=== PATIENT | male | born 1955 | race Caucasian/White ===

== ENCOUNTER 2021-06-04 12:10 | Emergency (ER) | payer MEDICARE, SELFPAY ==
[2021-06-04 12:40] VITALS: BP 134/83; PULSE 73; RESP 18; TEMP 37.1; O2SAT 93; BMI 26.1
[2021-06-04 13:43] VITALS: BP 166/95; PULSE 70; O2SAT 94
--- NOTE | 2021-06-04 14:06 | W.ED.GENADLT ---
HPI - General Adult General: Chief complaint: General Medical Stated complaint: UNABLE TO EAT/SLEEP MUCH 5 DAYS, WEAK, DIFF BREATH Time Seen by Provider: 06/04/21 13:52 History of Present Illness: HPI narrative: Patient complains of cold-like symptoms. He had a fever 2 days ago. Had aches chills no headache has had nausea and loss of taste. Said he has vomited some able to drink fluids. He said his symptoms started about 8 to 9 days ago. MD complaint: covid Onset (ago): day(s) Associated symptoms: Reports dyspnea, nausea and vomiting; Deny chest pain, headache(s) or rash Review of Systems Narrative: Loss of taste Const: Reports: fever(s), chills and body aches Eyes: Denies: change in vision or blurry vision ENMT: Denies: throat pain or nasal congestion Card: Denies: chest pain or dyspnea on exertion Resp: Reports: dyspnea and non-productive cough; Denies: productive cough GI: Reports: nausea and vomiting; Denies: abdominal pain : Denies: difficulty urinating Musc: Denies: extremity pain Skin/Breast: Denies: rash Neuro: Denies: headache(s) Psych: Denies: anxiety or depression Cezar/Lymph: Denies: easy bruising PFSH ED PFSH: Medical History (Updated 06/04/21 @ 16:37 by LEONARDA Santacruz) Cervical disc disorder with myelopathy of mid-cervical region Cervical spondylosis Hypertension Surgical History (Updated 02/01/20 @ 15:09 by Parth Maguire MD) H/O right knee surgery Family History (Updated 02/01/20 @ 15:01 by Sarita Putnam LPN) Mother Diabetes Social History (Updated 02/01/20 @ 15:02 by Sarita Putnam LPN) Smoking and tobacco status: former smoker Alcohol intake: never Lives independently: Yes Marital status: Current occupational status: employed History of recent travel: No Physical Exam Const: COMMON NORMALS: no acute distress, average body habitus and patient oriented x3 HENMT: COMMON NORMALS: normocephalic HEAD & SCALP: normal to inspection and normocephalic FACE & SINUS: normal facial exam Eye: COMMON NORMALS: conjunctivae normal GENERAL EYE: appearance normal, both eyes and all related structures CONJUNCTIVA: Yes conjunctivae normal Neck/C-Spine: COMMON NORMALS: no JVD Chest: COMMONS NORMALS: normal inspection of the chest Resp: COMMON NORMALS: normal respiratory effort and clear to auscultation bilaterally AUSCULTATION: clear to auscultation bilaterally Cardio: COMMON NORMALS: no JVD, regular rate and regular rhythm RATE: regular rate RHYTHM: regular rhythm GI: COMMON NORMALS: Normal to inspection, nondistended, normoactive bowel sounds present Extremity: COMMON NORMALS: normal to inspection and full ROM Neuro: COMMON NORMALS: patient oriented x3 Course Vital Signs: Vital signs: Vital Signs Temperature 98.7 F 06/04/21 12:40 Pulse Rate 78 06/04/21 16:56 Respiratory Rate 16 06/04/21 16:56 Blood Pressure 122/70 06/04/21 16:56 Pulse Oximetry 97 06/04/21 16:56 MDM - General Adult MDM Narrative: Medical decision making narrative: Patient presented with Covid-like symptoms. Covid test was negative. Radiology and laboratory studies look good. UA showed bacteria but it appeared to be not a clean-catch sample based on other reporting elements. Patient appears to have a viral syndrome. Patient was instructed to follow back up here or with primary care if worsening symptoms. Encourage patient get retested if symptoms continue but since she is in day 8 it probably would not make much difference. Patient is recovering and feeling better. Did not appear dehydrated. Lab Data: Labs: Lab Results 06/04/21 06/04/21 06/04/21 Range/Units 14:33 15:24 15:24 WBC 6.7 (4.0-10.0) 10^3/ uL RBC 5.40 H (4.1-5.3) 10^6/u L Hgb 16.7 H (11.7-16.6) g/dL Hct 49.8 (42.0-52.0) % MCV 92.2 (80-94) fL MCH 30.9 (28.0-34.0) pg MCHC 33.5 (30.0-36.0) g/dL RDW 13.3 (12.1-15.1) % Plt Count 189 (130-400) 10^3/c mm MPV 10.1 (7.4-10.4) fL Neut % (Auto) 75.4 % Lymph % (Auto) 17.7 % [place] % (Auto) 6.0 % Eos % (Auto) 0.0 % Baso % (Auto) 0.3 % Neut # (Auto) 5.04 (1.8-7.7) 10^3/u L Lymph # (Auto) 1.2 (0.8-4.8) 10^3/u L [place] # (Auto) 0.4 (0.2-0.9) 10^3/u L Eos # (Auto) 0.0 (0.0-0.8) 10^3/u L Baso # (Auto) 0.0 (0.0-0.1) 10^3/u L Nucleated RBC % (a uto) 0 % Nucleated RBCs # 0.0 /100WBC Sodium 137 (136-145) mmol/L Potassium 4.1 (3.5-5.1) mmol/L Chloride 98 (98-107) mmol/L Carbon Dioxide 25 (22-29) mmol/L Anion Gap 18.1 (5-19) BUN 19 (8-23) mg/dL Creatinine 0.8 (0.7-1.2) mg/dL GFR Calculation 96.4 (90-130) mL/min Glucose 110 (65-115) mg/dL Calculated Osmolal ity 287 (285-295) mOsm/k g Lactate (0.5-2.2) mmol/L Calcium 8.9 (8.5-10.5) mg/dL Total Bilirubin 0.7 (0.15-1.2) mg/dL AST 42 H (0-40) U/L ALT 39 (0-41) U/L Alkaline Phosphata se 71 (40-130) IU/L Total Protein 7.2 (6.6-8.7) g/dL Albumin 3.8 (3.5-5.2) g/dL Globulin 3.4 (1.3-4.6) g/dL Lipase 15 (13-60) U/L Urine Color Yellow (Yellow) Urine Appearance Clear (CLEAR) Urine pH 5 (5-7) Ur Specific Gravit y 1.020 (1.005-1.030) Urine Protein 1+ H (Negative) Urine Glucose (UA) Norm (Normal) Urine Ketones 1+ H (Negative) Urine Blood 2+ H (Negative) Urine Nitrate Negative (Negative) Urine Bilirubin 1+ H (Negative) Urine Urobilinogen 4 H (Negative) mg/dL Ur Leukocyte Danielle ase Negative (Negative) Urine RBC 0-4 H (0-2) /hpf Urine WBC 0-4 H (0-5) /hpf Ur Squamous Epith Cells 0-4 H (0-5) /hpf Amorphous Sediment Not Reportable Urine Bacteria 1+ H (NONE) /hpf Urine Mucus 1+ /hpf SARS-CoV-2 Ag (Rap id) (Negative) 06/04/21 06/04/21 Range/Units 15:24 16:00 WBC (4.0-10.0) 10^3/ uL RBC (4.1-5.3) 10^6/u L Hgb (11.7-16.6) g/dL Hct (42.0-52.0) % MCV (80-94) fL MCH (28.0-34.0) pg MCHC (30.0-36.0) g/dL RDW (12.1-15.1) % Plt Count (130-400) 10^3/c mm MPV (7.4-10.4) fL Neut % (Auto) % Lymph % (Auto) % [place] % (Auto) % Eos % (Auto) % Baso % (Auto) % Neut # (Auto) (1.8-7.7) 10^3/u L Lymph # (Auto) (0.8-4.8) 10^3/u L [place] # (Auto) (0.2-0.9) 10^3/u L Eos # (Auto) (0.0-0.8) 10^3/u L Baso # (Auto) (0.0-0.1) 10^3/u L Nucleated RBC % (a uto) % Nucleated RBCs # /100WBC Sodium (136-145) mmol/L Potassium (3.5-5.1) mmol/L Chloride (98-107) mmol/L Carbon Dioxide (22-29) mmol/L Anion Gap (5-19) BUN (8-23) mg/dL Creatinine (0.7-1.2) mg/dL GFR Calculation (90-130) mL/min Glucose (65-115) mg/dL Calculated Osmolal ity (285-295) mOsm/k g Lactate 2.0 (0.5-2.2) mmol/L Calcium (8.5-10.5) mg/dL Total Bilirubin (0.15-1.2) mg/dL AST (0-40) U/L ALT (0-41) U/L Alkaline Phosphata se (40-130) IU/L Total Protein (6.6-8.7) g/dL Albumin (3.5-5.2) g/dL Globulin (1.3-4.6) g/dL Lipase (13-60) U/L Urine Color (Yellow) Urine Appearance (CLEAR) Urine pH (5-7) Ur Specific Gravit y (1.005-1.030) Urine Protein (Negative) Urine Glucose (UA) (Normal) Urine Ketones (Negative) Urine Blood (Negative) Urine Nitrate (Negative) Urine Bilirubin (Negative) Urine Urobilinogen (Negative) mg/dL Ur Leukocyte Danielle ase (Negative) Urine RBC (0-2) /hpf Urine WBC (0-5) /hpf Ur Squamous Epith Cells (0-5) /hpf Amorphous Sediment Urine Bacteria (NONE) /hpf Urine Mucus /hpf SARS-CoV-2 Ag (Rap id) Negative (Negative) Discharge Plan Discharge Patient Disposition: Home Clinical Impression: Acute viral syndrome Condition: Stable Prescriptions: New Zofran 4 mg tablet 4 mg PO Q8H 3 Days Qty: 9 RF: 0 trazodone 50 mg tablet 25 mg PO DAILY PRN (Reason: sleep) Qty: 7 RF: 0 No Action metoprolol tartrate 25 mg tablet 25 mg PO BID RF: 0 simvastatin 20 mg tablet 20 mg PO BEDTIME RF: 0 Advil 200 mg Tablet 400 mg PO PRN RF: 0 Men's One Daily Tablet 1 tab PO DAILY RF: 0 Cough And Flu Liquid Med See Rx Instructions .ROUTE .COMPLEX RF: 0 Discharge Orders: Discharge ED (Routine); Ordered 06/04/21 Ordered By: Mario Epstein Referrals: Daryn Renee [Primary Care Provider] - Discharge Diet: Advance as tolerated Discharge Activity: Increase activity as tolerated Patient Instructions: Viral Syndrome (ED) Activity Restrictions/Additional Instructions: Follow-up with medical provider as directed. Take medications as prescribed. Return to the ER or your medical provider if condition worsens. Please read and understand discharge instructions. If any questions ask please. Call in an hour to to get your Covid result. Coding Level of Care Code ED Fire Protection Designer for Maheshg Fwd Exam Comprehensive
--- NOTE | 2021-06-04 14:07 | XRR_ITS ---
PROCEDURE INFORMATION: Exam: XR Abdomen Exam date and time: 06/04/2021 2:07 PM Age: 66 years old Clinical indication: Nausea and vomiting; Patient HX: Patient complains of cold-like symptoms. He had a fever 2 days ago. Had aches chills no headache has had nausea and loss of taste. Said he has vomited some able to drink fluids. He said his symptoms started about 8 to 9 days ago. ; Additional info: SOB, n/v TECHNIQUE: Imaging protocol: XR of the abdomen. Views: 2 Views. Upright and supine views. COMPARISON: CR Chest 2 views* [id number] 02/04/2019 8:48 AM FINDINGS: Gastrointestinal tract: Small bowel loop in the left hemiabdomen appears borderline distended at 2.8 cm in transverse dimension. No air-fluid levels are seen. Trace air-fluid level in the left hemicolon at the splenic flexure without distension. Intraperitoneal space: Normal. No free air. Bones/joints: Unremarkable for age. XR/XR acute abdomen series [id number] IMPRESSION: 1. Borderline distended small bowel loop in the left hemiabdomen. This is nonspecific and could be incidental, a low-grade bowel obstruction is not excluded radiographically. If this is clinically suspected then a CT of the abdomen and pelvis would be the next step imaging modality. 2. Trace air-fluid level within the left hemicolon. Correlate for diarrhea.
--- NOTE | 2021-06-04 14:23 | PC.PHAR ---
PT STATES HE TAKES CARE OF HIS OWN MEDICATIONS-PT STATES HE RAN OUT OF HIS METOPROLOL A COUPLE WEEKS AGO [facility] LAST FILLED 06/29/2020 90D/S AND [facility] LAST FILLED ON 08/29/2020 90D/S SHEFALI STATES THE PT HAS ONE REFILL ON BOTH THOSE MEDICATIONS-PT STATES HE WAS TAKING A OTC COUGH AND FLU LIQUID MEDICATION BUT STATES HE CANT REMEMBER THE NAME OF IT
[2021-06-04 15:07] LABS: Add Urine Microscopic? YES; Bilirubin Urine 1+ (Negative); Blood Urine 2+ (Negative); Glucose Urine UA Norm (Normal); Ketones Urine 1+ (Negative); Leukocyte Esterase Urine Negative (Negative); Nitrate Urine Negative (Negative); Protein Urine 1+ (Negative); Urine Appearance Clear (CLEAR); Urine Color Yellow (Yellow); Urobilinogen Urine 4 mg/dL (Negative); pH Urine 5 (5-7)
[2021-06-04 15:08] LABS: Mucus Urine 1+ /hpf
[2021-06-04 15:09] LABS: Add Urine Culture? No; Bacteria Urine 1+ /hpf; RBC Urine 0-4 /hpf (0-2); Squamous Epithelial Cell Urine 0-4 /hpf (0-5); WBC Urine 0-4 /hpf (0-5)
--- NOTE | 2021-06-04 15:11 | CT_ITS ---
WS: [id number] CT ABDOMEN AND PELVIS WITH CONTRAST HISTORY: possible SBO TECHNIQUE: Imaging performed of the abdomen and pelvis with IV contrast. Single phase imaging of the abdomen. Coronal and sagittal reformats are submitted. All CT scans at [facility] use at least one of these dose optimization techniques: automated exposure control; mA and/or kV adjustment per patient size (includes targeted exams where dose is matched to clinical indication); or iterativ e reconstruction. IV CONTRAST: Omnipaque 300; 95 mL IV. Oral contrast: No DLP: 1198.95 mGy.cm COMPARISON: None available. Lower thorax: Coarsened articulations at the lung bases. May be edema, chronic fibrosis or pneumoniti s. Heart is normal size. Small hiatal hernia. Liver/biliary system: Normal size liver with hepatic steatosis. LEFT lobe of the liver with the large st measuring 2.0 cm. Gallbladder: Normal. No gallstones or wall thickening. No pericholecystic fluid. Pancreas: Normal size pancreas and pancreatic duct. No adjacent inflammation. Spleen: Normal size spleen. No mass or infarct. Adrenal glands: Normal. Right kidney: No hydronephrosis. Cortical cyst 8 mm lower pole. Left kidney: No hydronephrosis or obstruction. Aorta: Atherosclerotic plaque with aneurysmal dilatations in the aorta. At the GE junction aneurysmal dilatation to 3.9 cm. Aorta returns to normal size. Additional aneurysmal dilatation below the renal arteries at 3.7 cm. Moderate amount of thrombus and plaque. Lymphadenopathy: None. Free fluid: None. GI tract: Normal appendix. There is a very small amount of increased fluid in the distal small bowel and cecum. No obstructive pattern. No focal mass identified. No adenopathy. Abdominal wall: Unremarkable abdominal wall. No hernia. Pelvis: No free fluid or adenopathy within the pelvis. Bones: Unremarkable. CT/CT abdomen pelvis w con* [id number] IMPRESSION: 1. Mild fibrotic changes at the lung bases versus edema or pneumonitis. 2. No GI tract obstruction. Minimal increased amount of fluid in the distal sm all bowel and cecum. 3. Hepatic steatosis and hepatic cysts. 4. Suprarenal and infrarenal abdominal aortic aneurysms, maximum diameter 3.9 and 3.7 cm respectively.
[2021-06-04 15:33] LABS: Basophils % 0.3 %; Hematocrit 49.8 % (42.0-52.0); Hemoglobin 16.7 g/dL (11.7-16.6); Lymphocytes # 1.2 10^3/uL (0.8-4.8); Lymphocytes % 17.7 %; Mean Corpuscular HGB Conc 33.5 g/dL (30.0-36.0); Mean Corpuscular Hemoglobin 30.9 pg (28.0-34.0); Mean Corpuscular Volume 92.2 fL (80-94); Mean Platelet Volume 10.1 fL (7.4-10.4); Monocytes # 0.4 10^3/uL (0.2-0.9); Neutrophils # 5.04 10^3/uL (1.8-7.7); Neutrophils % 75.4 %; Nucleated Red Blood Cells % 0 %; Platelet Count 189 10^3/cmm (130-400); Red Cell Distribution Width 13.3 % (12.1-15.1); White Blood Count 6.7 10^3/uL (4.0-10.0)
[2021-06-04 15:56] LABS: Alanine Aminotransferase 39 U/L (0-41); Albumin Level 3.8 g/dL (3.5-5.2); Alkaline Phosphatase 71 IU/L (40-130); Anion Gap 18.1 (5-19); Aspartate Amino Transferase 42 U/L (0-40); Blood Urea Nitrogen 19 mg/dL (8-23); Calcium 8.9 mg/dL (8.5-10.5); Carbon Dioxide 25 mmol/L (22-29); Chloride 98 mmol/L (98-107); Globulin 3.4 g/dL (1.3-4.6); Glomerular Filtration Rate 96.4 mL/min (90-130); Glucose 110 mg/dL (65-115); Lipase 15 U/L (13-60); Osmolality Calculated 287 mOsm/kg (285-295); Potassium 4.1 mmol/L (3.5-5.1); Sodium 137 mmol/L (136-145); Total Bilirubin 0.7 mg/dL (0.15-1.2); Total Protein 7.2 g/dL (6.6-8.7)
[2021-06-04] MEDS: sodium chloride 0.9% 1,000 ML 999 ML IV (16:00)
[2021-06-04] MEDS: ondansetron 2 mg/ML SDV 2 mL 4 MG IVP (16:02)
[2021-06-04 16:10] LABS: Slide Review Slide Review Perform
[2021-06-04 16:42] LABS: SARS Covid-2 Antigen Negative (Negative)
[2021-06-04 16:56] VITALS: BP 122/70; PULSE 78; RESP 16; O2SAT 97
== END 2021-06-04 16:57 | disposition home or self-care (01) ==
PROVIDERS: Emergency Provider Nurse Practitioner Family; PCP Family Medicine
DX: B34.9 Viral infection, unspecified (principal); I10 Essential (primary) hypertension; Z87.891 Personal history of nicotine dependence; Z20.822 Contact with and (suspected) exposure to COVID-19
CPT/HCPCS: 74022; 74177; 80053; 81001; 83605; 83690; 85025; 87426; 96361; 96374; 99283; J2405; J7030; Q9967

== ENCOUNTER 2021-10-29 11:40 | Outpatient (CLI) | payer MEDICARE, SELFPAY ==
[2021-10-29 13:10] LABS: Alanine Aminotransferase 37 U/L (0-41); Albumin Level 4.5 g/dL (3.5-5.2); Alkaline Phosphatase 63 IU/L (40-130); Anion Gap 15.8 (5-19); Aspartate Amino Transferase 25 U/L (0-40); Blood Urea Nitrogen 18 mg/dL (8-23); Calcium 8.8 mg/dL (8.5-10.5); Carbon Dioxide 24 mmol/L (22-29); Chloride 102 mmol/L (98-107); Chol HDL Ratio 4.12 mg/dL (1.0-5.00); Cholesterol 169 mg/dL (0-200); Globulin 2.3 g/dL (1.3-4.6); Glomerular Filtration Rate 96.4 mL/min (90-130); Glucose 88 mg/dL (65-115); HDL Cholesterol 41 mg/dL (60-100); LDL Cholesterol Calculated 52 mg/dL (50-129); LDL HDL Ratio 1.27 RATIO (0.00-3.22); Osmolality Calculated 285 mOsm/kg (285-295); Potassium 4.8 mmol/L (3.5-5.1); Sodium 137 mmol/L (136-145); Total Bilirubin 0.4 mg/dL (0.15-1.2); Total Protein 6.8 g/dL (6.6-8.7); Triglycerides 379 mg/dL (0-150)
== END 2021-10-29 11:41 | disposition home or self-care (01) ==
PROVIDERS: Visit Provider Nurse Practitioner Family
DX: E78.2 Mixed hyperlipidemia (principal)
CPT/HCPCS: 36415; 80053; 80061

== ENCOUNTER 2022-02-25 08:24 | Outpatient (CLI) | payer MEDICARE, SELFPAY ==
--- NOTE | 2022-02-25 08:36 | CT_ITS ---
WS: [id number] CT ANGIOGRAPHY ABDOMEN HISTORY: AAA /HYPERLIPIDEMIA TECHNIQUE: CT angiogram is performed during IV injection. Reformation images reviewed. MIP images and VR reviewed. All CT scans at [facility] use at least one of these dose optimization technique s: automated exposure control; mA and/or kV adjustment per patient size (includes targeted exams wher e dose is matched to clinical indication); or iterative reconstruction. CONTRAST: Omnipaque 350; 95 mL IV. DLP: 684.30 mGy-cm. COMPARISON: 06/04/2021 Hyperinflation at the lung bases. Mild interstitial thickening. Overall improved aeration since the p rior examination. Heart size is normal. Tricuspid regurgitation into hepatic veins. Abdominal aorta: Atherosclerotic plaque throughout the abdominal aorta. There has been an increase th e amount of soft plaque surrounding the aorta. The suprarenal aneurysmal dilatation measures 4.0 cm a t its maximum which is stable. The enhancing lumen is 3.2 cm. The amount of soft plaque is slightly i ncreased. The infrarenal aneurysm with a maximum diameter of 3.7 cm which is also stable. Stable amou nt of soft plaque in intimal luminal thickening. Aneurysm tapers to the bifurcation. The origin of th e celiac axis and SMA are normal. Renal arteries are widely patent. Inferior mesenteric artery is pat ent but the origin is narrowed. Calcifications extend into the iliac arteries bilaterally. There is a very tiny ulceration versus pseudoaneurysm involving the proximal LEFT common iliac artery. May have been present on the prior study but due to small size and volume averaging not visualized. Internal and external iliac arteries as visualized are patent. Hepatic steatosis. Low-attenuation nodule in the LEFT lobe of the liver measures 2.5 cm and has been previously described consistent with a cyst. Very slight increase in size since the prior study. Ther e is diffuse hepatic steatosis. No bile duct dilatation. Gallbladder is normal. No bile duct dilatati on. Normal pancreas and spleen. Normal adrenal glands. Kidneys are enhancing normally. No mass or inf arct. There are a few scattered too small to characterize hypodensities in the LEFT kidney. No osseous abnormality. CT/CT angio abdomen [id number] IMPRESSION: 1. Stable suprarenal and infrarenal abdominal aortic aneurysms since 06/04/2021. 2. Maximum diameter of the suprarenal aortic aneurysm is 4.0 cm in the infrare nal aneurysm 3.7 cm. 3. There has been a slight increase in amount of intraluminal thrombus surroun ding the suprarenal aneurysm. 4. Hepatic steatosis and slight increase in size of the cyst in the LEFT lobe of the liver. 5. Mild hepatomegaly. Tricuspid regurgitation.
[2022-02-25 10:24] LABS: Blood Urea Nitrogen 16 mg/dL (8-23); Glomerular Filtration Rate 74.3 mL/min (90-130)
[2022-02-25] MEDS: iohexol 350 mg/mL 100 mL Btl IV (10:25)
== END 2022-02-25 08:25 | disposition home or self-care (01) ==
LOC: RAD 08:28
PROVIDERS: PCP Family Medicine; Visit Provider Family Medicine
DX: I71.4 Abdominal aortic aneurysm, without rupture (principal); E78.5 Hyperlipidemia, unspecified; K76.0 Fatty (change of) liver, not elsewhere classified; R16.0 Hepatomegaly, not elsewhere classified; I07.1 Rheumatic tricuspid insufficiency; K76.89 Other specified diseases of liver
CPT/HCPCS: 74175; 82565; 84520

== ENCOUNTER → 2022-07-21 14:30 | Outpatient (BNVA) | payer MEDICARE, SELFPAY | PROVIDERS: PCP Family Medicine; Visit Provider Family Medicine | DX: E78.5 Hyperlipidemia, unspecified (principal); M77.8 Other enthesopathies, not elsewhere classified; I10 Essential (primary) hypertension | CPT/HCPCS: 80053; 80061; 83721; 84443; 85025 ==

== ENCOUNTER → 2022-09-04 10:56 | Outpatient (BNVA) | payer MEDICARE, SELFPAY | PROVIDERS: PCP Family Medicine; Visit Provider Family Medicine | DX: R79.89 Other specified abnormal findings of blood chemistry (principal); E78.5 Hyperlipidemia, unspecified; I10 Essential (primary) hypertension | CPT/HCPCS: 80076 ==

== ENCOUNTER → 2022-12-10 11:09 | Outpatient (BNVA) | payer MEDICARE, SELFPAY | PROVIDERS: PCP Family Medicine; Visit Provider Family Medicine | DX: E78.5 Hyperlipidemia, unspecified (principal); I10 Essential (primary) hypertension | CPT/HCPCS: 80076 ==

== ENCOUNTER → 2023-06-16 11:31 | Outpatient (BNVA) | payer MEDICARE, SELFPAY | PROVIDERS: PCP Family Medicine; Visit Provider Family Medicine | DX: R79.89 Other specified abnormal findings of blood chemistry (principal); E78.5 Hyperlipidemia, unspecified; I10 Essential (primary) hypertension; Z00.00 Encounter for general adult medical examination without abnormal findings | CPT/HCPCS: 80053; 80061; 84443; 85025 ==

== ENCOUNTER → 2023-12-25 09:09 | Outpatient (BNVA) | payer MEDICARE, SELFPAY | PROVIDERS: PCP Family Medicine; Visit Provider Clinical Nurse Specialist Adult Health | DX: R19.7 Diarrhea, unspecified (principal) | CPT/HCPCS: 80053; 85025; 86140 ==

== ENCOUNTER 2023-12-29 08:57 | Outpatient (CLI) | payer MEDICARE, SELFPAY | END 2023-12-29 08:58 | disposition home or self-care (01) | PROVIDERS: PCP Family Medicine; Visit Provider Family Medicine | DX: R19.7 Diarrhea, unspecified (principal) | CPT/HCPCS: 87045; 87177; 87209; 87427; 87449 ==

== ENCOUNTER 2024-01-27 08:46 | Outpatient (CLI) | payer MEDICARE, SELFPAY | END 2024-01-27 08:47 | disposition home or self-care (01) | LOC: LAB 08:46 | PROVIDERS: PCP Family Medicine; Visit Provider Clinical Nurse Specialist Adult Health | DX: R19.7 Diarrhea, unspecified (principal) | CPT/HCPCS: 83630; 87046 ==

== ENCOUNTER → 2024-04-18 14:09 | Outpatient (BNVA) | payer MEDICARE, SELFPAY | PROVIDERS: PCP Family Medicine; Visit Provider Family Medicine | DX: R19.7 Diarrhea, unspecified (principal); R79.89 Other specified abnormal findings of blood chemistry | CPT/HCPCS: 80053; 83690; 85025; 85651; 86140 ==

== ENCOUNTER 2024-04-21 15:17 | Emergency (ER) | payer MEDICARE, SELFPAY ==
[2024-04-21 15:24] VITALS: BP 167/80; PULSE 71; RESP 17; TEMP 36.6; O2SAT 96; BMI 28.0
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
[2024-04-21 15:44] VITALS: BP 157/79; PULSE 61; RESP 17; O2SAT 95
[2024-04-21 16:39] VITALS: BP 155/76; PULSE 62; O2SAT 94
== END 2024-04-21 16:45 | disposition home or self-care (01) ==
PROVIDERS: Emergency Provider Nurse Practitioner Family; PCP Family Medicine
DX: Z04.1 Encounter for examination and observation following transport accident (principal); R51.9 Headache, unspecified; S16.1XXA Strain of muscle, fascia and tendon at neck level, initial encounter; Z79.82 Long term (current) use of aspirin; I10 Essential (primary) hypertension; Z87.891 Personal history of nicotine dependence; V89.2XXA Person injured in unspecified motor-vehicle accident, traffic, initial encounter
CPT/HCPCS: 70450; 72125; 99284

== ENCOUNTER → 2024-05-11 10:50 | Outpatient (BNVA) | payer MEDICARE, SELFPAY | PROVIDERS: PCP Family Medicine; Referring Provider Family Medicine; Visit Provider Surgery | DX: R19.7 Diarrhea, unspecified; R79.89 Other specified abnormal findings of blood chemistry | CPT/HCPCS: 99204 ==

== ENCOUNTER 2024-05-13 09:15 | Outpatient (CLI) | payer MEDICARE, SELFPAY ==
[2024-05-13 09:33] LABS: Basophils % 0.4 %; Eosinophils # 0.2 10^3/uL (0.0-0.8); Eosinophils % 3.8 %; Hematocrit 50.6 % (37-53); Lymphocytes # 1.8 10^3/uL (0.8-4.8); Lymphocytes % 36.1 %; Mean Corpuscular HGB Conc 33.8 g/dL (30-55); Mean Corpuscular Hemoglobin 31.5 pg (27-33); Mean Corpuscular Volume 93.4 fl (82-101); Mean Platelet Volume 10.1 fL (7.4-10.4); Monocytes # 0.5 10^3/uL (0.2-0.9); Monocytes % 9.6 %; Neutrophils % 49.9 %; Nucleated Red Blood Cells % 0 %; Platelet Count 151 10^3/cmm (157-399); Red Blood Count 5.42 10^6/uL (3.85-5.65); Red Cell Distribution Width 13.1 % (12.1-15.1); White Blood Count 5.01 10^3/uL (3.29-11.43)
[2024-05-13 10:09] LABS: Alanine Aminotransferase 59 U/L (0-41); Albumin Level 4.2 g/dL (3.5-5.2); Alkaline Phosphatase 80 U/L (40-130); Anion Gap 14.5 (5-19); Aspartate Amino Transferase 45 U/L (0-40); Blood Urea Nitrogen 15 mg/dL (8-23); Calcium 9.2 mg/dL (8.5-10.5); Carbon Dioxide 26 mmol/L (22-29); Chloride 102 mmol/L (98-107); Globulin 3.4 g/dL (1.3-4.6); Glomerular Filtration Rate 83.4 mL/min (90-130); Glucose 133 mg/dL (65-115); Lipase 18 U/L (13-60); Osmolality Calculated 289 mOsm/kg (285-295); Potassium 4.5 mmol/L (3.5-5.1); Sodium 138 mmol/L (136-145); Total Bilirubin 0.7 mg/dL (0.15-1.2); Total Protein 7.6 g/dL (6.6-8.7)
[2024-05-17 22:51] LABS: Fecal Fat, Qualitative Normal (Normal)
== END 2024-05-13 09:16 | disposition home or self-care (01) ==
LOC: LAB 09:15
PROVIDERS: PCP Family Medicine; Visit Provider Surgery
DX: K52.9 Noninfective gastroenteritis and colitis, unspecified (principal)
CPT/HCPCS: 80053; 82705; 83630; 83690; 83993; 85025

== ENCOUNTER → 2024-05-18 08:24 | Outpatient (BNVA) | payer MEDICARE, SELFPAY | PROVIDERS: PCP Family Medicine; Visit Provider Family Medicine | DX: I10 Essential (primary) hypertension (principal); R79.89 Other specified abnormal findings of blood chemistry | CPT/HCPCS: 80061; 83036; 83721 ==

== ENCOUNTER 2024-07-21 07:15 | Day surgery (SDC) | payer MEDICARE, SELFPAY ==
[2024-07-21 07:25] VITALS: BMI 29.0
--- NOTE | 2024-07-21 07:30 | W.PM.OPSFHP ---
Same Day Surgery H&P Indication for Procedure/HPI DATE OF PROCEDURE: July 21, 2024 CHIEF COMPLAINT/INDICATIONFOR SURGICAL PROCEDURE: need for screening colonoscopy PREOP DIAGNOSIS: need for screening colonoscopy PLANNED PROCEDURE: Operation Date: 07/21/24 08:25 Proposed Procedures p Colonoscopy 22973, G0105, R19.7(Not Applicable) - Abad Dailey MD Medications/Allergies* Home Medications Medication Instructions Recorded Confirmed Type metoprolol tartrate 25 mg tablet 25 mg PO BID 07/19/24 07/19/24 History trazodone 50 mg tablet 50 mg PO DAILY PRN insomina 07/19/24 07/19/24 History Allergies/Adverse Reactions Allergy/AdvReac Type Severity Reaction Status Date / Time No Known Allergies Allergy Verified 07/19/24 09:55 Pertinent History/Comorbid Conditions* Medical History (Updated 05/18/24 @ 08:23 by Benjamín Rosenthal MD) Hypertension Cervical disc disorder with myelopathy of mid-cervical region Cervical spondylosis Surgical History (Updated 02/01/20 @ 15:09 by Parth Maguire MD) H/O right knee surgery Family History (Updated 02/01/20 @ 15:01 by Sarita Putnam LPN) Diabetes Mother Social History Smoking and tobacco/nicotine status: former use of tobacco/nicotine Alcohol intake: never Substance/Drug Use: never Lives independently: Yes Marital status: Current occupational status: employed Pertinent Exam Findings alert, oriented x 3, clear to auscultation bilaterally and regular rate & rhythm Recommendations Surgery/Procedure today Coding Level of Care Code Acute Code for Chg Fwd
[2024-07-21 07:33] VITALS: BP 157/93; PULSE 66; RESP 18; TEMP 36.3; O2SAT 97
[2024-07-21] MEDS: sodium chloride 0.9% 1,000 ML 30 ML IV (07:37)
--- NOTE | 2024-07-21 07:39 | P.ANESASSM_ITS ---
Pre-Anesthetic Assessment Height/Weight: Height 1.68 m Weight 81.647 kg Temp Pulse Resp BP Pulse Ox O2 Del Method 97.3 F L 66 18 157/93 97 Room Air 07/21/24 07:33 07/21/24 07:33 07/21/24 07:33 07/21/24 07:33 07/21/24 07:33 07/21/24 07:33 Preop Diagnosis: need for screening colonoscopy Operation Date: 07/21/24 08:25 Proposed Procedures p Colonoscopy 73730, G0105, R19.7(Not Applicable) - Abad Dailey MD Familial anesthetic complications: None Was Beta Stephanie taken within 24 hours: Yes Was Clonidine taken within 24 hours: N/A Last intake: Intake Last Liquid Date 07/20/24 Last Liquid Time 22:00 Last Solid Date 07/19/24 Last Solid Time 17:00 Social No alcohol and No tobacco Exam alert, oriented x 3, clear to auscultation bilaterally and regular rate & rhythm Airway Mallampati: Class II Dentition: other (no teeth) CV/HEM AAA (stable, on metoprolol to prevent progression) Anesthetic Plan ASA status: 2 Anesthesia: MAC Risk of > 500 ml blood loss (7ml/kg in children): No Medications/Allergies Home Medications Medication Instructions Recorded Confirmed Last Taken Type aspirin 81 mg tablet,delayed 81 mg PO DAILY #30 tabs 07/09/23 07/19/24 07/20/24 Rx release (Adult Aspirin Regimen) metoprolol tartrate 25 mg tablet 25 mg PO BID 07/19/24 07/19/24 07/20/24 History trazodone 50 mg tablet 50 mg PO DAILY PRN insomina 07/19/24 07/19/24 07/20/24 History Allergies Allergy/AdvReac Type Severity Reaction Status Date / Time No Known Allergies Allergy Verified 07/19/24 09:55 [facility] Anesthesia Medical History Hypertension Cervical disc disorder with myelopathy of mid-cervical region Cervical spondylosis Surgical History H/O right knee surgery Family History Mother Diabetes Social History Smoking and tobacco/nicotine status: former use of tobacco/nicotine Alcohol intake: never Substance/Drug Use: never Lives independently: Yes Marital status: Current occupational status: employed Data Anesthesia Cardiac Studies: No Data to Display
[2024-07-21 08:43] VITALS: BP 117/71; PULSE 57; RESP 16; TEMP 36.2; O2SAT 96
[2024-07-21 08:56] VITALS: BP 135/72; PULSE 55; RESP 16; O2SAT 97
--- NOTE | 2024-07-21 09:10 | ANE.PACU2 ---
Inpatient post-anesthesia follow up: Airway intact: Yes Vital signs: Temperature 97.2 F Pulse Rate 55 Respiratory Rate 16 Blood Pressure 135/72 Pulse Oximetry 97 Oxygen Delivery Me thod Room Air Oxygen Flow Rate Fraction of Inspir ed Oxygen Hydration adequate: Yes Nausea and vomiting: No Pain level: 1 Mental status: Baseline
== END 2024-07-21 09:11 | disposition home or self-care (01) ==
PROVIDERS: PCP Family Medicine; Visit Provider Surgery
PROC: 0DJD8ZZ Inspection of Lower Intestinal Tract, Via Natural or Artificial Opening Endoscopic (ICD-10-PCS; CPT 45378; principal; 2024-07-21 08:25)
DX: Z12.11 Encounter for screening for malignant neoplasm of colon (principal); D12.5 Benign neoplasm of sigmoid colon; I10 Essential (primary) hypertension; Z87.891 Personal history of nicotine dependence; Z79.82 Long term (current) use of aspirin
CPT/HCPCS: 45380; 45385; 88305; J2704; J7030

== ENCOUNTER → 2024-08-16 10:03 | Outpatient (BNVA) | payer MEDICARE, SELFPAY | PROVIDERS: PCP Family Medicine; Visit Provider Surgery | DX: Z09 Encounter for follow-up examination after completed treatment for conditions other than malignant neoplasm (principal) | CPT/HCPCS: 99213 ==

== ENCOUNTER 2025-02-17 12:14 | Outpatient (CLI) | payer MEDICARE, SELFPAY ==
--- NOTE | 2025-02-17 12:15 | USCV_ITS ---
Margarito Larson Age: 70 Gender: M : 1955 Exam Date: 02/17/2025 12:32 Ordering Phys: Benjamín Rosenthal MD Technologist: Hoang Song Exam Location: [facility] [place] Indication: f/u aaa HISTORY: Diameter (cm) AP x Transverse x Length Velocity (cm/s) Waveform Prox Aorta: 3.28 x 3.75 x 40.00 Mid Aorta: 3.87 x 4.38 x 45.70 Distal Aorta: 3.66 x 4.11 x 49.20 Right Iliac Prox: 0.95 x 1.37 x 142.40 Left Iliac Prox: 1.06 x 1.38 x 84.50 Stent Prox Landing x x Aneurysmal Sac Max x x Lt Lat Sac Dim Rt Lat Sac Dim Stent Dist Landing x x Right Iliac Stent x x Left Iliac Stent x x Right Renal Art Left Renal Art FINDINGS: CONCLUSIONS 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 This appears slightly progressed since CTA 02/25/22. Normal iliac arteries. AAA extends over 8.0cm. CTA comparison would be helpful Mural thrombus with moderate atheromatous disease lBu Romero MD (Electronically Signed) Final Date: 17 February 2025 13:55 S
== END 2025-02-17 12:15 | disposition home or self-care (01) ==
PROVIDERS: PCP Family Medicine; Visit Provider Family Medicine
DX: I71.40 Abdominal aortic aneurysm, without rupture, unspecified (principal); I74.09 Other arterial embolism and thrombosis of abdominal aorta; I70.0 Atherosclerosis of aorta
CPT/HCPCS: 93978